=== PATIENT | male | born 1950 | race Caucasian/White ===

== ENCOUNTER 2019-04-13 12:54 | Inpatient (IN) | payer MEDICARE ==
[~2019-04-13] VITALS: Ht 177.8 cm; Wt 68.4 kg
--- NOTE | 2019-04-13 13:30 | NUR ---
PT BROUGHT IN BY EMS UNKEPT WITH SOILED CLOTHES. SOCKS AND SHOES BLACK AND SOCKS TUCK TO LOWER LEGS. PT TAKEN TO SHOWER ROOM AND CLEANSED. BLE RED AND SWOLLEN, SKIN INTACT. SACRAL AREA RED AND BLANCHABLE, SKIN INTACT. SCABS NOTED ABOVE LEFT BROW AND BRIDGE OF NOSE "I FELL A WHILE BACK" NO S/SX OF INFECTION NOTED.
[2019-04-13 14:03] LABS: UDS - AMPHET NEGATIVE QUAL (NEGATIVE); UDS - BARB NEGATIVE QUAL (NEGATIVE); UDS - BENZO NEGATIVE QUAL (NEGATIVE); UDS - COCAINE NEGATIVE QUAL (NEGATIVE); UDS - OPIATE NEGATIVE QUAL (NEGATIVE); UDS - PCP NEGATIVE QUAL (NEGATIVE); UDS - THC NEGATIVE QUAL (NEGATIVE)
[2019-04-13 14:04] LABS: APPEARANCE HAZY (CLEAR); BACTERIA FEW /hpf (NONE SEEN); BILIRUBIN NEGATIVE (NEGATIVE); COLOR YELLOW (YELLOW); EPITHELIAL CELLS 0-5 /hpf (0-5); GLUCOSE NEGATIVE (NEGATIVE); KETONE SMALL mg/dL (NEGATIVE); MUCUS <1+ /lpf (NONE SEEN); NITRITE NEGATIVE (NEGATIVE); PROTEIN TRACE mg/dL (NEGATIVE); RED CELLS - URINE 25-50 /hpf (0-5); SPECIFIC GRAVITY 1.015 (1.005-1.020); UROBILINOGEN NORMAL (NORMAL); WHITE CELLS - URINE OCC /hpf (0-5)
[2019-04-13 14:24] LABS: BASOPHILS 0.3 % (0-2); EOSINOPHILS 0.3 % (0-7); HEMATOCRIT 41.3 % (42.0-54.0); HEMOGLOBIN 14.9 g/dL (13.5-17.5); IMMATURE GRANULOCYTES 0.2 % (0-5); LYMPHOCYTES 12.5 % (15-50); MCH 36.9 pg (26.0-34.0); MCHC 36.1 g/dL (31.0-37.0); MCV 102.2 fL (80.0-100.0); MEAN PLATELET VOLUME 9.1 fL (7.4-10.4); MONOCYTES 5.2 % (2-11); NEUTROPHILS 81.5 % (40-80); PLATELET COUNT 276 10x3/uL (130-400); RBC 4.04 10x6/uL (4.20-6.10); RDW 13.7 % (11.5-14.5); WBC 10.1 10x3/uL (4.8-10.8)
[2019-04-13 14:25] LABS: ALBUMIN 2.8 g/dL (3.4-5.0); ALKALINE PHOSPHATASE 136 U/L (46-116); ALT (SGPT) 16 U/L (10-68); CALC OSMOLALITY 274 mosm/kg (275-300); CALCIUM 8.7 mg/dL (8.5-10.1); CARBON DIOXIDE 29.9 mmol/L (21.0-32.0); CHLORIDE - SERUM 99 mmol/L (98-107); CREATININE - SERUM 0.8 mg/dL (0.6-1.3); GLUCOSE 90 mg/dL (74-106); POTASSIUM - SERUM 3.6 mmol/L (3.5-5.1); PROTEIN - SERUM 7.3 g/dL (6.4-8.2); SODIUM 138 mmol/L (136-145); UREA NITROGEN 10 mg/dL (7-18); eGFR NON AFRICAN AMERICAN > 90 mL/min (90-120)
--- NOTE | 2019-04-13 14:35 | NUR ---
CLARI WITH [facility] AT AND REPORTS PT HAVING HALLUCINATIONS AT HOME "SEEING PBABIES UNDER THE TABLE, SLEEPING IN TRASH"
[2019-04-13 14:49] VITALS: BP 148/90
--- NOTE | 2019-04-13 16:04 | NUR ---
CALLED JULITA AT [facility] TO SEE IF THEY CAN ACCEPT PT. INFO FAXED TO [facility] AT THEIR REQUEST ([facility] FAX#[phone])
--- NOTE | 2019-04-13 16:30 | NUR ---
PT REQUESTING TO GO OUT TO SMOKE. OUT WITH MABEL MONTAGUE CM.
[2019-04-13 16:33] VITALS: BP 144/88
--- NOTE | 2019-04-13 16:40 | NUR ---
RTN TO ER#14. RESTING IN WC WITHOUT C/O. VSS
[2019-04-13 18:11] VITALS: BP 142/89
--- NOTE | 2019-04-13 18:11 | NUR ---
MEAL TRAY SERVED. APPETITE GOOD
--- NOTE | 2019-04-13 18:22 | NUR ---
CALLED [facility] TO REQUEST EVAL. SPOKE WITH GERBER, SHE WILL COME SOON SHE CAN
--- NOTE | 2019-04-13 18:35 | NUR ---
DENISSE MAYES FROM [facility] AT FOR MOMO
--- NOTE | 2019-04-13 19:02 | NUR ---
[facility] HOME ADVISED PT TO RECIEVE BANANA BAG BEFORE BEING TRANSPORTED.
--- NOTE | 2019-04-13 19:02 | NUR ---
BS REPORT TO DENISSE MARTÍNEZ
--- NOTE | 2019-04-13 19:45 | NUR ---
PT PROVIDED WITH ICE WATER AT THIS TIME. PT SITTING UP IN BED.
--- NOTE | 2019-04-13 20:20 | NUR ---
PT IV D/C AFTER BANANA BAG COMPLETE. PT TO BE TRANSFERRED TO [facility] WHEN THE UNIT IS READY TO ACCEPT.
--- NOTE | 2019-04-13 21:12 | NUR ---
PT TRANSFERRED TO [facility] AT THIS TIME.
[2019-04-13 22:38] LABS: APPEARANCE CLEAR (CLEAR); BACTERIA FEW /hpf (NONE SEEN); BILIRUBIN NEGATIVE (NEGATIVE); COLOR YELLOW (YELLOW); EPITHELIAL CELLS 0-5 /hpf (0-5); GLUCOSE NEGATIVE (NEGATIVE); KETONE NEGATIVE (NEGATIVE); NITRITE NEGATIVE (NEGATIVE); PROTEIN TRACE mg/dL (NEGATIVE); SPECIFIC GRAVITY 1.015 (1.005-1.020); UROBILINOGEN NORMAL (NORMAL); WHITE CELLS - URINE 0-5 /hpf (0-5)
--- NOTE | 2019-04-14 02:12 | NUR ---
PATIENT ARRIVED AT 21:00 FROM OUR E.D. VIA WHEELCHAIR, APS CASE (CLARI [phone], PATIENT WAS FOUND WANDERING FROM HIS HOME IN VERY POOR CONDITION, PATIENT WAS CLEANED UP IN THE E.D. BEFORE COMING TO INTERMEDIATE, CODE WORD 'APS' CODE STATUS IS FULL CODE. PATIENT SIGNED HIMSELF IN, CALM AND COOPERATIVE, WILL CONTINUE TO MONITOR.
[2019-04-14 03:24] VITALS: BP 135/89; BMI 22.8
[2019-04-14 06:39] LABS: BASOPHILS 0.2 % (0-2); EOSINOPHILS 0.9 % (0-7); HEMATOCRIT 37.4 % (42.0-54.0); HEMOGLOBIN 12.9 g/dL (13.5-17.5); IMMATURE GRANULOCYTES 0.2 % (0-5); LYMPHOCYTES 9.7 % (15-50); MCH 35.2 pg (26.0-34.0); MCHC 34.5 g/dL (31.0-37.0); MCV 102.2 fL (80.0-100.0); MEAN PLATELET VOLUME 9.2 fL (7.4-10.4); MONOCYTES 7.3 % (2-11); NEUTROPHILS 81.7 % (40-80); PLATELET COUNT 264 10x3/uL (130-400); RBC 3.66 10x6/uL (4.20-6.10); RDW 13.8 % (11.5-14.5); WBC 9.2 10x3/uL (4.8-10.8)
[2019-04-14 08:13] LABS: ALBUMIN 2.5 g/dL (3.4-5.0); ALKALINE PHOSPHATASE 111 U/L (46-116); ALT (SGPT) 14 U/L (10-68); BILIRUBIN - TOTAL 0.48 mg/dL (0.2-1.3); CALC OSMOLALITY 276 mosm/kg (275-300); CARBON DIOXIDE 29.9 mmol/L (21.0-32.0); CHLORIDE - SERUM 102 mmol/L (98-107); CHOL - HDL RATIO 2.2 ratio (2.3-4.9); CHOLESTEROL, TOTAL 131 mg/dL (0-200); CREATININE - SERUM 0.9 mg/dL (0.6-1.3); GLUCOSE 93 mg/dL (74-106); HDL CHOLESTEROL 59 mg/dL (32-96); LDL CHOLESTEROL 58 mg/dL (0-100); POTASSIUM - SERUM 3.6 mmol/L (3.5-5.1); PROTEIN - SERUM 6.2 g/dL (6.4-8.2); SODIUM 139 mmol/L (136-145); THYROID STIMULATING HORMONE 1.83 uIU/mL (0.36-3.74); TRIGLYCERIDE 74 mg/dL (30-200); UREA NITROGEN 10 mg/dL (7-18); eGFR NON AFRICAN AMERICAN 89 mL/min (90-120)
[2019-04-14 09:08] VITALS: BP 136/63
--- NOTE | 2019-04-14 12:37 | NUR ---
PT IS AWAKE, ALERT, AND COOPERATIVE. ASSESSMENT COMPLETE. NO BEHAVIORS NOTED AT THIS TIME. MED COMPLIANT. FALL PRECAUTIONS IN PLACE. REDIRECT AND REORIENT NEEDED. WILL CPOC.
[2019-04-14 19:42] VITALS: BP 134/75
--- NOTE | 2019-04-14 21:00 | NUR ---
PT IS COMBATIVE AND AGGITATED WITH STAFF AND PEERS. PRN 0.5 MG ATIVAN IM GIVEN. WILL CONTINUE TO MONITOR.
--- NOTE | 2019-04-14 21:49 | NUR ---
PT APPEARS LESS AGGITATED BUT IS REMOVING HIS SHIRT IN DAY ROOM. HE REFUSES TO PUT BACK ON UNTIL HE GOES TO HIS ROOM. WILL CONTINUE TO MONITOR.
--- NOTE | 2019-04-14 23:01 | NUR ---
B.) PT IS ALERT AND ORIENTED TO SELF ONLY. HE IS LABILE WITH ADL'S. HE CAN GET VERBALLY AGGRESSIVE. HE AMBULATES BY HISELF. I.) REDIRECT OFTEN. R.) REMAINS CONFUSED DESPITE MULTIPLE ATTEMPTS TO REDIRECT. P.) CONTINUE PLAN OF CARE
[2019-04-15 08:11] LABS: RAPID PLASMA REAGIN Non Reactive (Non Reactive)
[2019-04-15 08:32] VITALS: BP 144/67
--- NOTE | 2019-04-15 12:29 | NUR ---
NUTRITION F/U NEW PT WITH LOW NUTRITIONAL SCREEN ON ADMIT. REG DIET. WILL MONITOR PO INTAKE AND WT. RD FOLLOWING
--- NOTE | 2019-04-15 13:34 | PSY ---
PATIENT NAME:JULI KEATING MEDICAL RECORD: [id number] : 50 LOCATION:[facility] ADMISSION DATE: 04/13/19 ACCOUNT: [id number] PSYCHIATRIC EVALUATION DATE OF EVALUATION: 04/14/19 IDENTIFYING DATA: The patient is 69 years old and he is admitted to the hospital on a voluntary basis. CHIEF COMPLAINT: Confusion. HISTORY OF PRESENT ILLNESS: The patient presented to the Emergency Room yesterday. He apparently was brought there by [facility] for placement. The patient is quite impaired. Apparently, he has been living alone and not caring for himself. His physical condition has improved as he has been bathed and given clean clothing, but apparently he was extremely disheveled. He is extremely impaired cognitively and is giving me virtually no useful information, simply rambling and incoherent. He does report a history of drinking and smoking, but I would doubt he has done any recently. PAST MEDICAL HISTORY: Currently unknown. PAST PSYCHIATRIC HISTORY: Unknown. ALLERGIES: No known drug allergies. CURRENT MEDICATIONS: None. MENTAL STATUS EXAMINATION: The patient is awake, alert and oriented to person only. He is not able to cooperate with formal mental status testing, but his memory, concentration, and abstraction abilities can be inferred to be significantly and seriously impaired based on context. SOCIAL HISTORY: Unknown. Apparently, the patient has history of alcohol and cigarette use. Other than that, I have no collateral sources of information. 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 AXIS II: Deferred. AXIS III: None. AXIS IV: Moderate. AXIS V: Global assessment of functioning is 20. PLAN: At this time, the patient is severely impaired cognitively. He will be observed for alcohol withdrawal symptoms and treated supportively while additional sources of information are being sought. TRANSINT:[id number] Voice Confirmation ID: [id number] DOCUMENT ID: [id number] LANIE NAIR MD at 1334 CC: [id number] DICTATION DATE: 04/14/191705 SLOT ATTENDANT: 04/14/19 1736 ADM IN [address] [id number] [place] [address]
--- NOTE | 2019-04-15 16:29 | NUR ---
RECEIVED PT IN DINING ROOM FOR B'FAST, ALERT, CALM, CONFUSED, COOPERATIVE. MEDS ADMIN PER ORDERS WITH COMPLETE MED COMPLIANCE NOTED. COOPERATIVE WITH STAFF AND PLAN OF CARE. CONT POC DIRECTED.
[2019-04-15 20:20] VITALS: BP 149/87
--- NOTE | 2019-04-16 03:39 | NUR ---
B.) PT IS ALERT AND ORIENTED TO SELF ONLY. HE RAMBLES TO HIMSELF OFTEN BUT IS CALM AND COOPERATIVE. HE IS ABLE TO MAKE NEEDS KNOWN. SELF AMBULATES WITHOUT ASSISTANCE. I.) PROVIDED PM MEDICATIONS. REDIRECT OFTEN. R.) COMPLIANT WITH ALL MEDICATIONS. VERBALIZES UNDERSTANDING OF REDIRECTS BUT IS EASILY CONFUSED AGAIN. P.) CONTINUE PLAN OF CARE
[2019-04-16 09:36] VITALS: BP 109/82
--- NOTE | 2019-04-16 15:43 | NUR ---
B) The patient is awake and alert, he is calm and he is pleasant and he is cooperative with staff. He has not shown any hallucinations today and he has not been exit seeking. I) Provide prescribed meds. R) The patient is compliant with meds and unit milieu. P) Continue POC.
--- NOTE | 2019-04-16 20:53 | NUR ---
PATIENT IS CONFUSED, ISOLATIVE, CAN PERFORM OWN ADL'S, COMPLIANT WITH MEDS. WILL FOLLOW POC
[2019-04-16 21:26] VITALS: BP 93/51
--- NOTE | 2019-04-17 08:01 | NUR ---
B) The patient is calm this am, he has poor insight into his situation. He has not shown any signs of hallucinations. He does have delusions as he says he needs to catch a ride and leave. He is oriented to self. He likes to joke and talk with staff and peers. He is forgetful and asks the same question over and over, but he is good at covering. I) Provide prescribed meds. R) The patient is compliant with meds and unit milieu this am. Will monitor his behavior. P) Continue POC.
--- NOTE | 2019-04-17 15:43 | NUR ---
PATIENT WAS GETTING OUT OF CHAIR WALKED A FEW STEPS AND FELL BACKWARDS. STAFF ASSISTED TO STANDING POSITION 3X. NO INJURIES NOTED. PT DENIES PAIN AT THIS TIME. VITAL SIGNS TAKEN. NEURO CHECKS STARTED. Martha VALERO APN NOTIFIED AT 1518. CALLED PLASTER MAKER TO REPORT FALL AND NO ANSWER. WILL CONTACT AGAIN. WILL CONT NEURO CHECKS. NO FAMILY TO CONTACT.
[2019-04-17 19:05] VITALS: BP 109/77
[2019-04-17 20:36] VITALS: BP 130/80
--- NOTE | 2019-04-17 22:15 | NUR ---
PATIENT IS CONFUSED, HAS TO BE REDIRECTED AT TIMES, INCONTINENT, COMPLIANT WITH MEDS. WILL FOLLOW POC
[2019-04-18 08:00] VITALS: BP 124/80
--- NOTE | 2019-04-18 16:40 | NUR ---
PT IS AWAKE AND ALERT TO PERSON ONLY. CALM AND COOPERATIVE WITH ASSESSMENT. MED COMPLIANT. REDIRECT AND REORIENT NEEDED. FALL PRECAUTIONS IN PLACE. WILL CPOC.
--- NOTE | 2019-04-18 20:15 | NUR ---
RECEIVED IN DAYROOM. SITTING IN A CHAIR WITH PEERS AT HIS SIDE. CALM AND COOPERATIVE WITH CARE AND ASSESSMENT. NO SIGNS OF HALLUCINATIONS AT THIS TIME. REDIRECT AND REORIENT NEEDED. CONTINUES TO SIT QUIETLY IN DAYROOM. CONTINUE PLAN OF CARE
[2019-04-18 22:48] VITALS: BP 107/69
[2019-04-19 08:00] VITALS: BP 117/69
--- NOTE | 2019-04-19 09:30 | NUR ---
PT IS AWAKE AND ALERT TO PERSON. CALM AND COOPERATIVE WITH ASSESSMENT. MED COMPLIANT. REDIRECT AND REORIENT NEEDED. NO BEHAVIORS NOTED. FALL PRECAUTIONS IN PLACE. WILL CPOC.
[2019-04-19 17:09] VITALS: Ht 177.8 cm; Wt 68.4 kg
[2019-04-19 20:23] VITALS: BP 96/70
--- NOTE | 2019-04-19 22:02 | NUR ---
RECEIVED IN DAYROOM. SITTING IN A CHAIR WITH PEERS AT HIS SIDE. CALM AND COOPERATIVE WITH CARE AND ASSESSMENT. NO SIGNS OF HALUCINATIONS. REDIRECT AND REORIENT NEEDED. CONTINUES TO SIT CALMLY IN CHAIR. CONTINUE PLAN OF CARE
[2019-04-20 08:00] VITALS: BP 99/73
--- NOTE | 2019-04-20 10:00 | NUR ---
AWAKE AND ALERT TO PERSON ONLY. MEDICATION COMPLIANT. CALM AND COOPERATIVE WITH CARE AND ASSESSMENT. REDIRECT AND REORIENT NEEDED. FALL PRECAUTIONS IN PLACE. WILL CPOC.
[2019-04-20 20:10] VITALS: BP 109/74
--- NOTE | 2019-04-20 20:43 | NUR ---
RECEIVED IN DAYROOM. SITTING IN A CHAIR WITH PEERS BY HIS SIDE SOCIALIZING. CALM AND COOPERATIVE WITH CARE AND ASSESSMENT. NO SIGNS OF HALLUCINATIONS. REDIRECT AND REORIENT NEEDED. CONTINUES TO SIT CALMLY IN DAYROOM SOCIALIZING. CONTINUE PLAN OF CARE
--- NOTE | 2019-04-21 13:04 | NUR ---
PATIENI IS AWAKE AND ALERT TO SELF ONLY. CALM AND COOPERATIVE WITH ASSESSMENTS. NO BEHVIORS NOTED. FALL PRECAUTIONS IN PLACE. WILL CPOC.
[2019-04-21 20:55] VITALS: BP 105/73
--- NOTE | 2019-04-22 01:05 | NUR ---
REC'D SITTING IN THE DAYROOM. CONFUSED AND WALKS ABOUT UNIT. WITHDRAWN AMD STAYS TO SELF. PROCCUPIED WITH WANTING TEA. ASKED NURSE MULTIPLE TIMES IF THERE WAS ANY FRESH TEA. ORIENTED TO SELF. ADMINISTER MEDS PER ORDERS Q SHIFT AND MONITOR COMPLIANCE. REORIENT NEEDED. MED COMPLIANT. COOPERATIVE WITH UNIT MILEU. POOR REORIENTATION RELATED TO PATIENT'S FORGETFULNESS. CONTINUE POC AND PROVIDE SAFE ENVIRONMENT.
[2019-04-22 09:26] VITALS: BP 101/71
--- NOTE | 2019-04-22 10:03 | NUR ---
B) The patient is pleasant and he is confused, he has poor insight into his situation. He sits with another male patient and they sit and talk and socialize, but he does not seek staff or other peers. I) Provide prescribed meds. R) The patient is compliant with meds. He ambulates indepedently. He has not had any hallucinations today. P) Continue POC.
--- NOTE | 2019-04-22 12:25 | NUR ---
NUTRITION F/U CHART REVIEWED, PT TOLERATING AHA DIET WITH 100% INTAKE RECENT MEALS. WT FAIRLY STABLE. WILL CONTINUE TO MONITOR PO INTAKE AND WT. RD FOLLOWING
[2019-04-22 20:01] VITALS: BP 119/64
--- NOTE | 2019-04-22 22:59 | NUR ---
REC'D PATIENT SITTING IN A WHEELCHAIR RECEIVING AN UPDRAFT TX. CONFUSED AND DISORIENTED. AMBULATES HOWEVER IS UNSTEADY. INTERACTS WITH A FEMALE PEER AND REQUIRES REDIRECTION IF OBSERVED TOUCHING ONE ANOTHER. NO INSIGHT INTO THE REASON FOR ADMISSION. ADMINISTER MEDS PER ORDERS Q SHIFT AND MONITOR COMPLIANCE. MED COMPLIANT. COOPERATIVE WITH REDIRECTION HOWEVER REQUIRES CLOSE SUPERVISION BECAUSE WILL GO TO ANOTHER ROOM. CONTINUE POC AND MONITOR COMPLIANCE.
--- NOTE | 2019-04-23 07:48 | NUR ---
B) The patient is awake and alert this am, he asks for coffee as soon as his eyes pop open and Nathan Carvajal [facility] got him a cup. He is oriented to his name. He is pleasnt, he has not shown any signs of hallucinations this am. I) Provide prescribed meds. Request that the patient initiate his med list. R) The patient takes his meds as prescribed. P) Continue POC.
[2019-04-23 08:30] VITALS: BP 104/66
[2019-04-23 20:00] VITALS: BP 111/69
--- NOTE | 2019-04-24 00:20 | NUR ---
B.) PT IS ALERT AND ORIENTED TO SELF AND SITUATION. HE IS AMBULATORY AND PLEASANT WITH STAFF. HIS AFFECT HAS IMPROVED. HE IS SUPPLIED WITH A SCHEDULE OF HIS MEDICATIONS TO SEE IF HE IS ABLE TO MANAGE HIS MEDICATIONS AT HOME WITHOUT ASSISTANCE. I.) PROVIDED PM MEDICATIONS. REDIRECT OFTEN. R.) COMPLIANT WITH ALL MEDICATIONS BUT UNABLE TO KEEP UP WITH HIS SCHEDULE OF MEDICATIONS AND IS UNSURE OF WHEN HIS NEXT DOSE IS. PT VERBALIZES UNDERSTANDING OF REDIRECT. P.) CONTINUE PLAN OF CARE
--- NOTE | 2019-04-24 07:38 | NUR ---
B) The patient is awake and alert, he is sitting in the hallway drinking coffeee and socializing with staff and peers. He has not shown any aggression, He is not exit seeking. He has not had any hallucinations. I) Provide prescribed meds. R) The patient is compliant with meds. Will provide a medication list and will request that he let the nurse know when he is to take his medications. He has lost the list, but will provide another one at this time. P) Continue POC.
[2019-04-24 08:00] VITALS: BP 116/55
--- NOTE | 2019-04-24 10:25 | NUR ---
The patient c/o a toothache and he rates it 10/10, Tylenol 650 mg po given now.
[2019-04-24 21:05] VITALS: BP 107/73
--- NOTE | 2019-04-24 22:22 | NUR ---
B.) PT IS ALERT AND ORIENTED TO SELF AND SITUATION. HE IS ABLE TO AMBULATE WITHOUT ASSISTANCE. HE WAS GIVEN A SCHEDULED LIST OF MEDICATIONS TO BE ABLE TO DETERMINE IF HE WAS ABLE TO MANAGE HIS OWN MEDICATIONS. I.) UNABLE TO PROMPT STAFF FOR SCHEDULED MEDICATIONS. PROVIDED PM MEDICATIONS. R.) COMPLIANT WITH ALL MEDICATIONS. P.) CONTINUE PLAN OF CARE
[2019-04-25 08:00] VITALS: BP 115/76
--- NOTE | 2019-04-25 15:01 | NUR ---
B) PATIENT IS ALERT TO SELF AND SITUATION. CALM AND COOPERATIVE WITH CARE AND ASSESSMENT. AMBULATES INDEPENDENTLY. I) ADMINISTER MEDICATIONS ORDERED. REDIRECT AND REORIENT FREQUENTLY. HE OFTEN HAS TO ASK WHERE THE BAYHROOM IS LOCATED. R) COMPLIANT WITH MEDICATIONS. P) CONTINUE PLAN OF CARE.
--- NOTE | 2019-04-25 19:35 | NUR ---
RECEIVED IN DAYROOM. SITTING IN A CHAIR SOCIALIZING WITH PEERS AT TIMES. CALM AND COOPERATIVE WITH CARE AND ASSESSMENT. NO SIGNS OF HALLUCINATIONS. REDIRECT AND REORIENT NEEDED. CONTINUES TO SIT CALMLY AT THIS TIME. CONTINUE PLAN OF CARE
[2019-04-25 22:56] VITALS: BP 105/71
[2019-04-26 08:00] VITALS: BP 137/71
--- NOTE | 2019-04-26 09:00 | NUR ---
B) PATIENT IS AWAKE AND ALERT TO SELF AND SITUATION, BUT IS VERY CONFUSED. HE IS SELF-AMBULATORY. CALM AND COOPERATIVE WITH CARE AND ASSESSMENT. SOCIALIZES WITH PEERS. I) ADMINISTER PRESCRIBED MEDICATIONS, REDIRECT AND REORIENT OFTEN. R) COMPLIANT WITH MEDICATIONS AND REDIRECTION. P) CONTINUE PLAN OF CARE.
--- NOTE | 2019-04-26 12:27 | PN ---
PATIENT:JULI ROCHA MEDICAL RECORD: [id number] LOCATION:[facility] ADMISSION DATE: 04/13/19 PROGRESS NOTE DATE OF SERVICE: 04/16/2019 SUBJECTIVE: Mr. Rocha is a 69-year-old male who has been wandering from home, hallucinating, not taking care of himself and exit seeking. He apparently was brought in by request of his son and when he came to the Emergency Room, he was disheveled to the point that his clothes were starting to stick to his skin extremely malodorous. On interview, the patient thought it was either 1998 or 1908 He did not know who the president was. He was walking, but somewhat unsteady and hesitating gait. He minimized any reason for being here. He did state that his last drink was 2 or 3 weeks ago and he was equivocal about ever having seizures. States that he passes out sometimes, but did not definitively answer yes or no on seizures. His latest vital signs are 91/80, 109/82 and 99% with clonazepam 1 mg b.i.d. He is eating 100% at all meals. Last bowel movement on the and slept 9-1/2 hours last night. ASSESSMENT: Unchanged. PLAN: The patient's memory is certainly impaired. We will continue to watch for his ability to care for self, but probable placement will be needed. Case discussed with nursing, chart reviewed. The patient reviewed. TRANSINT:[id number] Voice Confirmation ID: [id number] DOCUMENT ID: [id number] SHARON BARRY MD at 1227 CC: [id number] DICTATION DATE: 04/16/19 1345 DRAG SAWYER: 04/17/19 0021 ADM IN [id number] [place] [address]
--- NOTE | 2019-04-26 12:27 | PN ---
PATIENT:JULI ROCHA MEDICAL RECORD: [id number] LOCATION:[facility] Thomas112 ADMISSION DATE: 04/13/19 PROGRESS NOTE DATE OF SERVICE: 04/17/2019 SUBJECTIVE: Mr. Rocha is a 69-year-old male who was brought from home, I believe APS redirection. He was simply filthy, malodorous, low albumin, clearly not taking care of himself. On interview today, he thought the year was 1926. He did not know where we were. He did not know, in contrast to yesterday, who the president was. He continued to have no bilateral upper extremity tremor. He slept 9.25 hours last night, eating 100% of all meals and last bowel movement on the . He states he, for the most part, is doing well. He has limited insight into his ability to care for self; however. ASSESSMENT: Unchanged. PLAN: Continue. We will start to taper clonazepam secondary to the patient's longstanding alcohol use, his lack of tremor and his statements that he had not drank several weeks before admission and stable vital signs. 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 Literature is equivocal on whether Aricept might be as useful as would be the case on a straight Alzheimer's dementia patient. Case discussed with nursing. Chart reviewed and the patient interviewed. TRANSINT:[id number] Voice Confirmation ID: [id number] DOCUMENT ID: [id number] SHARON BARRY MD at 1227 CC: [id number] DICTATION DATE: 04/17/19 1317 HAND II BLOCKER: 04/17/19 1418 ADM IN [place] [id number] [place] [id number]
--- NOTE | 2019-04-26 12:28 | PN ---
PATIENT:JULI ROCHA MEDICAL RECORD: [id number] LOCATION:[facility] ThomasJohn ADMISSION DATE: 04/13/19 PROGRESS NOTE DATE OF SERVICE: 04/19/2019 SUBJECTIVE: Mr. Rocha is a 69-year-old male who was found wandering from home, hallucinating, not taking care of himself. He simply was extremely filthy and malodorous and at times here exit-seeking. He was napping, but when awoken pleasant, cooperative, confused. Stated that his ambulation is poor. He slept 7.75 hours. Nursing reports he is fairly calm, cooperative, although he definitely does not want to be here, "I don't belong here." PLAN: We will work with APS. The patient is clearly not able to care for self. Case discussed nursing, chart reviewed. The patient interviewed. TRANSINT:[id number] Voice Confirmation ID: [id number] DOCUMENT ID: [id number] SHARON BARRY MD at 1228 CC: [id number] DICTATION DATE: 04/19/19 1500 HOSPITAL RECEPTIONIST: 04/20/19 0039 ADM IN [facility] [address] [id number]
--- NOTE | 2019-04-26 12:28 | PN ---
PATIENT:JULI KEATING MEDICAL RECORD: [id number] LOCATION:[facility] Frazier ADMISSION DATE: 04/13/19 PROGRESS NOTE DATE OF SERVICE: 04/21/2019 SUBJECTIVE: This 69-year-old male who was found wandering from home, hallucinating. He has a long history of alcohol abuse, although he denied any use in the 2-3 weeks prior to admission. He was not taking care of himself. He was malodorous. His clothes were sticking to his body. He continues confused. He is alert and oriented times 1-2. He slept 7.75 hours, eating 100% of all meals and last bowel movement on the . We have him on medication compliance program and he is not able to initiate his own medication or asking the nurses for his medication. ASSESSMENT: Unchanged. PLAN: We are waiting APS, and disposition, and discharge instructions [facility] APs, working with APS. Case discussed with nursing, chart reviewed, and the patient interviewed. TRANSINT:[id number] Voice Confirmation ID: [id number] DOCUMENT ID: [id number] SHARON BARRY MD at 1228 CC: [id number] DICTATION DATE: 04/21/19 1045 TUBE BENDER HAND: 04/21/19 193 ADM IN [facility] [address] [place] [address]
--- NOTE | 2019-04-26 12:28 | PN ---
PATIENT:JULI ROCHA MEDICAL RECORD: [id number] LOCATION:TAR[facility] ThomasJohn ADMISSION DATE: 04/13/19 PROGRESS NOTE DATE OF SERVICE: 04/23/2019 SUBJECTIVE: Mr. Rocha is a 69-year-old male who came in wandering from his home, hallucinating, not taking care of himself, extremely malodorous and clothes sticking to him. He is calm, pleasant on interview. He is still alert and oriented times 1-2 only, but although his color, his mentation and gait do seem to be improving with the admission. He slept 8.5 hours, eating 100% of all meals and last bowel movement on the 24. OBJECTIVE: VITAL SIGNS: 98.6, 76, 17, 104/66 and 98%. ASSESSMENT: Unchanged. PLAN: Continue current treatment plan. Await APS involvement to move forward with disposition as the patient is unable to care for himself at this time. TRANSINT:[id number] Voice Confirmation ID: [id number] DOCUMENT ID: [id number] SHARON BARRY MD at 1228 CC: [id number] DICTATION DATE: 04/23/19 1319 JACK FRAME TENDER: 04/23/19 1438 ADM IN [id number] [place] [address]
--- NOTE | 2019-04-26 12:28 | PN ---
PATIENT:JULI ROCHA MEDICAL RECORD: [id number] LOCATION:TARUN Thomas112 ADMISSION DATE: 04/13/19 PROGRESS NOTE DATE OF SERVICE: 04/20/2019 SUBJECTIVE: Mr. Rocha is a 69-year-old male who had wandered from home. He was extremely unkempt, malodorous to the point that his son felt like he was no longer able to take care of himself. The patient is pleasant, cooperative, and confused. He himself reports some difficulties with ambulation. On exam today, the patient thought it was 1939. He knew the president was Serge Rand. He did not know what town he was in nor why he was here. He required some prompting with ADLs. On medication compliance program where the patient is given a list of medicines and asked to tell the nurses when it is time to better assess whether they can self-initiate medication. The patient has not been able to do this at all. He slept 8 hours, eating 100%. Last bowel movement 04/19/2019. OBJECTIVE: VITAL SIGNS: His latest vital signs are 98.2, 68, 18, 99/73, and 97%. ASSESSMENT: Unchanged. PLAN: We will move his clonazepam down from 0.5 mg t.i.d. to b.i.d. in a gradual taper to decrease fall risk and risk of furthering dementia. Case discussed with nursing, chart reviewed, and the patient interviewed. TRANSINT:[id number] Voice Confirmation ID: [id number] DOCUMENT ID: [id number] SHARON BARRY MD at 1228 CC: [id number] DICTATION DATE: 04/20/19 1508 RADIO HOST: 04/20/19 2357 ADM IN [place] [id number] [place] [address]
--- NOTE | 2019-04-26 12:28 | PN ---
PATIENT:JULI ROCHA MEDICAL RECORD: [id number] LOCATION:TARUN ThomasJohn ADMISSION DATE: 04/13/19 PROGRESS NOTE DATE OF SERVICE: 04/22/2019 SUBJECTIVE: Mr. Rocha is a 69-year-old male who was admitted because he was wandering from home hallucinating. He was malodorous. He had not showered in so long, his clothes were actually sticking to him. He has little to no insight about this. He does not know the year. He does not really understand why he is here. He is calm, pleasant; however. He is sleeping 8.5 hours and eating 100%. Last bowel movement was on the . His latest vitals are 97.5, 76, 20, 101/71, and 98%. ASSESSMENT: Unchanged. PLAN: We are awaiting APS involvement to help with disposition as the patient lacks the insight to determine his own disposition plans and is a danger to self and unable to care for self if left to his own devices. Case discussed with nursing, chart reviewed, and the patient interviewed. TRANSINT:[id number] Voice Confirmation ID: [id number] DOCUMENT ID: [id number] SHARON BARRY MD at 1228 CC: [id number] DICTATION DATE: 04/22/19 1608 ORDNANCE ENGINEER: 04/23/19 0048 ADM IN [id number] [place] [address]
[2019-04-26 20:22] VITALS: BP 122/70
--- NOTE | 2019-04-26 20:42 | NUR ---
RECEIVED IN DAYROOM. RESTING IN CHAIR WITH PEERS BY HIS SIDE. SOCIALIZING AT TIMES. CONFUSED. CALM AND COOPERATIVE WITH CARE AND ASSESSMENT. NO SIGNS OF HALLUCINATIONS. RESTING IN BED WITH EYES CLOSED AT THIS TIME. CONTINUE PLAN OF CARE
[2019-04-27 08:00] VITALS: BP 113/75
--- NOTE | 2019-04-27 10:05 | NUR ---
B) PATIENT IS AWAKE AND ALERT TO SELF ONLY, WITH SOME CONCFUSION NOTED. CALM AND COOOPERATIVE WITH CARE AND ASSESSMENT. SOCIALIZES WITH PEERS. I) ADMINISTER PRESCRIBED MEDICATIONS. REDIRECT AND REORIENT OFTEN. R) COMPLIANT WITH MEDICATIONS. REDIRECTS EASILY. P)CONTINUE PLAN OF CARE.
--- NOTE | 2019-04-27 10:18 | HP ---
PATIENT: JULI ROCHA MEDICAL RECORD: [id number] ACCOUNT: [id number] LOCATION:RizwanJINA Frazier8 : 50 ADMISSION DATE: 04/13/19 PCP: No PCP HISTORY AND PHYSICAL EXAMINATION HISTORY OF PRESENT ILLNESS: Mr. Rocha is a 69-year-old male who was admitted because of wandering from home, hallucinating, not taking care of himself at all. He continues to be confused, but he is pleasant. He is not able to self-initiate on medications at all. He can do his own ADLs if the activities are structured for him and he is told what to do. He slept 7.75 hours. Last bowel movement on . Eating 100%, 100%, and 25%. ASSESSMENT: Unchanged. PLAN: We will continue current treatment plan, awaiting APS involvement, and residential approval. The patient will make excellent residential candidate as he is generally calm, cooperative, but extremely confused. TRANSINT:[id number] Voice Confirmation ID: [id number] DOCUMENT ID: [id number] SHARON BARRY MD at 1018 CC: [id number] DICTATION DATE: 04/26/19 1249 RAW MATERIAL PLANNER: 04/26/19 1312 ADM IN [place] [address] [place] [address]
--- NOTE | 2019-04-27 10:18 | PN ---
PATIENT:JULI ROCHA MEDICAL RECORD: [id number] LOCATION:TARUN ThomasJohn ADMISSION DATE: 04/13/19 PROGRESS NOTE DATE OF SERVICE: 04/26/2019 SUBJECTIVE: Mr. Rocha is a 69-year-old male, who was admitted from his home after having wandered from his home hallucinating, not take care of himself, very poorly kempt. His clothes were basically sticking to him. We are awaiting Jyoti and placement. The patient is calm and pleasant. His memory is poor. Although, I have met with him multiple days now, he cannot remember my name, he cannot really remember what I do. He cannot remember to initiate meds, although medication list has been given to him. He slept 8-1/2 hours, eating 100%, 70%, and 100%. Last bowel movement on the . ASSESSMENT: Unchanged. PLAN: Continue current meds. Case discussed with nursing. Chart reviewed and the patient interviewed. Await placement decisions by local facility. TRANSINT:[id number] Voice Confirmation ID: [id number] DOCUMENT ID: [id number] SHARON BARRY MD at 1018 CC: [id number] DICTATION DATE: 04/26/19 1145 RECRUITMENT INTERN: 04/26/19 1350 [place] [address]
--- NOTE | 2019-04-27 19:57 | NUR ---
RECEIVED IN BEDROOM. RESTING IN BED WITH EYES OPEN. CALM AND COOPERATIVE WITH CARE AND ASSESSMENT. NO SIGNS OF HALLUCINATIONS. CONFUSED. REDIRECT AND REORIENT NEEDED. RESTING IN BED WITH EYES CLOSED AT THIS TIME. CONTINUE PLAN OF CARE
[2019-04-28 04:19] VITALS: BP 110/54
[2019-04-28 08:25] VITALS: BP 103/73
--- NOTE | 2019-04-28 15:47 | PN ---
PATIENT:JULI KEATING MEDICAL RECORD: [id number] LOCATION:TARUN Thomas112 ADMISSION DATE: 04/13/19 PROGRESS NOTE DATE OF SERVICE: 04/15/2019 SUBJECTIVE: The patient's case was discussed with staff. He has no new complaint. OBJECTIVE: The patient is very disorganized and only oriented to person. He does have a history of alcoholism, although I do not know how long it has been since he stopped drinking. ASSESSMENT: Alcohol-related dementia. PLAN: The patient will be maintained on current medicines. I am going to start him on a scheduled dose of Klonopin to assist with his anxiety. It is clear that he is going to require 79-hcum-e-day supervision. What is unclear is which setting would be the least restrictive that can meet those needs. TRANSINT:[id number] Voice Confirmation ID: [id number] DOCUMENT ID: [id number] LANIE NAIR MD at 1547 CC: [id number] DICTATION DATE: 04/15/19 1501 DIRECTOR OF CULTURE: 04/15/192004 ADM IN [facility] [address] [place] [address]
--- NOTE | 2019-04-28 18:01 | NUR ---
B) PATIENT IS AWAKE AND ALERT TO SELF ONLY. CALM AND COOPERATIVE WITH CARE AND ASSESSMENT. SOCIALIZES WITH PEERS. SOME CONFUSION NOTED. I) ADMINISTER PRESCRIBED MEDICATIONS. NO AGGRESSION NOTED. R) COMPLIANT WITH MEDICATIONS. REDIRECT AND REORIENT NEEDED. P) CONTINUE PLAN OF CARE.
[2019-04-28 20:19] VITALS: BP 132/85
--- NOTE | 2019-04-28 22:16 | NUR ---
B.) PT IS ALERT AND ORIENTED TO SELF, PLACE AND SITUATION. HE IS ABLE TO AMBULATE ON HIS OWN AND MAKE HIS NEEDS KNOWN. HE IS PLEASANT AND COOPERATIVE WITH STAFF AND PEERS. I.) PROVIDED PM MEDICATION. REDIRECT OFTEN. R.) COMPLIANT WITH ALL MEDICATIONS. EASY TO REDIRECT. P.) CONTINUE PLAN OF CARE
[2019-04-29 08:49] VITALS: BP 120/72
--- NOTE | 2019-04-29 11:43 | NUR ---
PATIENT SITTING AND SOCIALIZING WITH OTHER PEERS AND STAFF. NO ACUTE DISTRESS NOTED. RESP EVEN AND NONLABORED. PT AMBULATES AND IS ABLE TO MAKE NEEDS KNOWN. PT COMPLIANT WITH MEDS, VITALS AND ASSESSMENT. PT CAN BE CONFUSED AT TIMES AND ORIENTED TO PERSON, AND TIME. WILL CONT TO PLAN OF CARE.
--- NOTE | 2019-04-29 13:17 | NUR ---
Team Treatment Review: Diet: Regular Mechanical Soft PO Intake: 84% avg x 9 meals Wt: (no sig change) 04/18/2019: 148 lbs 04/25/2019: 148.2 lbs BM: x 1 on 04/28 Med: Vit B12, Folate Labs: No new labs since 04/14 PO intake good. Continue current diet as tolerated. Clinical Dietitian Following
--- NOTE | 2019-04-29 14:53 | PN ---
PATIENT:JULI KEATING MEDICAL RECORD: [id number] LOCATION:TARUN AstorgaMagdaJohn ADMISSION DATE: 04/13/19 PROGRESS NOTE DATE OF SERVICE: 04/28/2019 SUBJECTIVE: The patient's case was discussed with staff. He has no new complaint. OBJECTIVE: The patient is in good behavioral control with limited insight about his condition. He does tolerate his medicines well. ASSESSMENT: No change in diagnoses. PLAN: Brief supportive and educational interventions were made. Long-term prognosis is guarded. TRANSINT:[id number] Voice Confirmation ID: [id number] DOCUMENT ID: [id number] LANIE NAIR MD at 1453 CC: [id number] DICTATION DATE: 04/28/19 1623 ALUMINUM BOAT INSPECTOR: 04/29/19 0021 ADM IN [place] [place] [address]
[2019-04-29 20:53] VITALS: BP 113/76
--- NOTE | 2019-04-30 03:53 | NUR ---
B) Patient is alert and oriented to person and place, keeps to himself at times, preferrs quiet enviroment I) Administered scheduled medications as ordered, monitored for safety R) Medication compliant, pleasant and social P) Continue plan of care.
--- NOTE | 2019-04-30 14:28 | PN ---
PATIENT:JULI KEATING MEDICAL RECORD: [id number] LOCATION:TARUN Frazier ADMISSION DATE: 04/13/19 PROGRESS NOTE DATE OF SERVICE: 04/29/2019 SUBJECTIVE: The patient's case was discussed with staff. He has no new complaint. OBJECTIVE: The patient denies intent to harm himself or others. He generally tolerates his medicines well. ASSESSMENT: Alcohol-related dementia. PLAN: Current medicines have been reviewed. He is clearly in need of 86-dskc-y-day supervision. TRANSINT:[id number] Voice Confirmation ID: [id number] DOCUMENT ID: [id number] LANIE NAIR MD at 1428 CC: [id number] DICTATION DATE: 04/29/19 1500 RIVETING MACHINE OPERATOR: 04/30/19 0015 ADM IN [facility] [address] [place] [address]
[2019-04-30 14:55] VITALS: BP 113/76
[2019-04-30 20:05] VITALS: BP 123/88
--- NOTE | 2019-05-01 01:33 | NUR ---
REC'D SITTING IN THE DAYROOM HOLDING ANOTHER PATIENTS HAND. EXPLAINED TO BOTH PATIENTS THAT PHYSICAL CONTACT IS NOT ALLOWED. ORIENTED TO SELF AND WHEN ASKED IF HE KNEW WHERE HE IS PATIENT RELATED "SOMETHING NATIONAL." DISORIENTED TO TIME AND SITUATION. PLEASANT AND INTERACTS APPROPRIATELY WHEN APPROACHED. DELUSIONAL REALTING "I WAS WALKING DOWN THE ROAD AND FELL AND HIT MY HEAD AND HAVEN'T BEEN THE SAME SENSE. I'VE GOT DEMENTIA AND IT'S BACK." ADMINISTER MEDS Q SHIFT AND MONITOR COMPLIANCE. REORIENT NEEDED. MED COMPLIANT. PATIENT IS FORGETFUL AND DOES NOT RETAIN INFORMATION. COOPERATIVE WITH STAFF REQUEST. CONTINUE POC AND PROVIDE SAFE ENVIRONMENT.
[2019-05-01 08:56] VITALS: BP 96/65
[2019-05-01 11:23] VITALS: BP 96/65
--- NOTE | 2019-05-01 12:17 | PN ---
PATIENT:JULI KEATING MEDICAL RECORD: [id number] LOCATION:TARUN Frazier ADMISSION DATE: 04/13/19 PROGRESS NOTE DATE OF SERVICE: 04/30/2019 SUBJECTIVE: The patient's case was discussed with staff. He has no new complaint. OBJECTIVE: The patient is in good behavioral control with limited insight about his condition. He does tolerate his medicines well. ASSESSMENT: Dementia. PLAN: The patient is in need of 79-yppe-v-day supervision. I have spoken with him about changing his living situation and he is adamant that he wants to go home and live alone by himself. I have not explained to him that adult protective services is involved with the case. I know that has been explained before and he is apparently just forgotten it. At this point, hopefully, there will be some less restrictive environment that can meet his needs. He tells me he has 2 brothers, Scotty and Greyson and that he might be able to live with them, but he does not want to live with them. I will discuss this with the treatment team on Friday. TRANSINT:[id number] Voice Confirmation ID: [id number] DOCUMENT ID: [id number] LANIE NAIR MD at 1217 CC: [id number] DICTATION DATE: 04/30/19 1450 SENIOR SQL SERVER DATABASE DEVELOPER: 04/30/19 1554 ADM IN [place] [address] [place] [address]
--- NOTE | 2019-05-01 14:46 | NUR ---
PT IS AWAKE AND ALERT TO PERSON ONLY. PT IS VERY CONFUSED. HAS VERY LITTLE OR NO INSIGHT INTO HIS SITUATION. CALM AND COOPERATIVE WITH ASSESSMENT. MED COMPLIANT. NO BEHAVIORS NOTED AT THIS TIME. REDIRECT AND REORIENT NEEDED. FALL PRECAUTIONS IN PLACE. WILL CPOC.
[2019-05-01 20:59] VITALS: BP 122/70
--- NOTE | 2019-05-01 22:14 | NUR ---
SITTING IN DAYROOM. PLEASANT AND SOCIALIZES. INITIATES CONVERSATION WITH STAFF. CONFUSED AND DIORIENTED. DOES NOT STAY ON TOPIC OF CONVERSATION. CAN FOLLOW VERBAL INSTRUCTION. ADMINISTER MEDS Q SHIFT AND MONITOR COMPLIANCE. REORIENT NEEDED. MED COMPLIANT. POOR REORIENTATION DUE TO IMPAIRED ABILITY TO RETAIN INFORMATION. CONTINUE POC AND PROVIDE SAFE ENVIRONMENT.
[2019-05-02 08:41] VITALS: BP 103/68
--- NOTE | 2019-05-02 10:51 | PN ---
PATIENT:JULI KEATING MEDICAL RECORD: [id number] LOCATION:TARUN Frazier ADMISSION DATE: 04/13/19 PROGRESS NOTE DATE OF SERVICE: 05/01/2019 SUBJECTIVE: The patient's case was discussed with staff. He has no new complaint. OBJECTIVE: The patient denies intent to harm himself or others. He generally tolerates his medicines well. Eye contact is fair. ASSESSMENT: Dementia. PLAN: Current medicines have been reviewed and will be maintained. Long-term prognosis is guarded. TRANSINT:[id number] Voice Confirmation ID: [id number] DOCUMENT ID: [id number] LANIE NAIR MD at 1051 CC: [id number] DICTATION DATE: 05/01/19 1227 RECRUITING AND SELECTION CONSULTANT: 05/01/19 1257 ADM IN [facility] [address] [place] [address]
--- NOTE | 2019-05-02 11:25 | NUR ---
PATIENT IS SITTING AND SOCIALIZING WITH PEERS. NO ACUTE DISTRESS NOTED. ABLE TO MAKE NEEDS KNOWN. AMBULATES PER SELF. PT IS DISORIENTED AT TIMES. PT IS ORIENTED TO PERSON, PLACE AND TIME. EASY TO REORIENT. COMPLAINT WITH STAFF, MEDS, VITALS AND ASSESSMENTS. PT IS VERY FRIENDLY WITH STAFF. INCONTIENT AT TIMES. WILL CONT PLAN OF CARE.
--- NOTE | 2019-05-02 16:21 | NUR ---
NURSE OFFERED PATIENT A SHOWER 2X. PT REFUSED SHOWER STATING "IT'S TO COLD FOR A SHOWER" ILL TAKE ONE TOMORROW I PROMISE.
--- NOTE | 2019-05-02 20:07 | NUR ---
RECEIVED IN DAYROOM. SITTING IN A CHAIR WITH PEERS AT HIS SIDE. SOCIALIZING AT TIMES. CALM AND COOPERATIVE WITH CARE AND ASSESSMENT. NO SIGNS OF HALLUCINATIONS. RESTING IN BED WITH EYES CLOSED AT THIS TIME. CONTINUE PLAN OF CARE.
[2019-05-02 21:33] VITALS: BP 140/85
[2019-05-03 08:00] VITALS: BP 106/69
--- NOTE | 2019-05-03 13:39 | NUR ---
PT IS AWAKE AND ALERT TO PERSON ONLY. CALM AND COOPERATIVE WITH ASSESSMENT. AMBULATES INDEPENENTLY. PT IS IN PLEASANT MOOD THIS MORNING, BUT CAN GET IRRITABLE AND CONFUSED AT TIMES DURING THE DAY. MED COMPLIANT. REDIRECT AND REORIENT NEEDED. FALL PRECAUTIONS IN PLACE. WILL CPOC.
--- NOTE | 2019-05-03 15:02 | PN ---
PATIENT:JULI KEATING MEDICAL RECORD: [id number] LOCATION:TARUN Frazier ADMISSION DATE: 04/13/19 PROGRESS NOTE DATE OF SERVICE: 05/02/2019 SUBJECTIVE: The patient's case was discussed with staff. He has no new complaint. OBJECTIVE: The patient is in good behavioral control and is quite pleasant. He once again has no insight about his situation or need for assistance and is significantly impaired in all spheres in a manner consistent with a dementing illness. ASSESSMENT: Dementia. PLAN: Current medicines have been reviewed and will be maintained. Long-term prognosis is guarded. TRANSINT:[id number] Voice Confirmation ID: [id number] DOCUMENT ID: [id number] LANIE NAIR MD at 1502 CC: [id number] DICTATION DATE: 05/02/19 1139 SKATE MAKER: 05/02/19 1547 ADM IN [place] [id number] [place] [address]
[2019-05-03 20:14] VITALS: BP 121/67
--- NOTE | 2019-05-03 22:06 | NUR ---
RECEIVED IN DAYROOM. SOCIALIZING WITH PEERS. CALM AND COOPERATIVE WITH CARE AND ASSESSMENT. NO EXIT SEEKING BEHAVIORS. NO SIGNS OF HALLUCINATIONS. REDIRECT AND REORIENT NEEDED. RESTING IN BED WITH EYES CLOSED AT THIS TIME. CONTINUE PLAN OF CARE.
[2019-05-04 07:00] VITALS: BP 122/76
--- NOTE | 2019-05-04 10:52 | NUR ---
PT SITTING IN DAYROOM WATCHING TV WITH PEERS. ALERT TO PERSON ONLY. CALM AND COOPERATIVE WITH ASSESSMENT. MED COMPLIANT. REDIRECT AND REORIENT NEEDED. FALL PRECAUTIONS IN PLACE. WILL CPOC.
--- NOTE | 2019-05-04 14:29 | NUR ---
Nutrition Follow-up: Diet: Regular, mechanical soft PO intake: 90-100% x last 7 meals Labs, meds, and skin assessment reviewed. Last BM 05/03/19. Wt: 150# (05/02/19); admit wt: 120# (04/13/19)-- question accuracy of recorded wts vs fluid status? Continue current nutrition regimen. RD Following
--- NOTE | 2019-05-04 14:49 | PN ---
PATIENT:JULI KEATING MEDICAL RECORD: [id number] LOCATION:TARUN Frazier ADMISSION DATE: 04/13/19 PROGRESS NOTE DATE OF SERVICE: 05/03/2019 SUBJECTIVE: The patient's case was discussed with staff. He has no new complaint. OBJECTIVE: The patient is in good behavioral control with limited insight about his condition. He tolerates his medicines well. ASSESSMENT: Dementia. PLAN: The patient can be transitioned to the half-way as soon as arrangements are made for his placement there. TRANSINT:[id number] Voice Confirmation ID: [id number] DOCUMENT ID: [id number] LANIE NAIR MD at 1449 CC: [id number] DICTATION DATE: 05/03/19 1610 SHOP LEAD: 05/04/19 0003 ADM IN [place] [address] [place] [address]
--- NOTE | 2019-05-04 16:27 | NUR ---
YOLANDA SPOKE WITH SON, LISBETH, AND HE STATED HE WANTED A REFERRAL SENT TO [facility] IN [place]. YOLANDA SENT REFERRAL AND LEFT NOTE ON FAX SHEET TO CONTACT UNIT IF PT IS ACCEPTED.
--- NOTE | 2019-05-04 20:44 | NUR ---
RECEIVED IN DAYROOM. SITTING IN A CHAIR WITH PEERS AT HIS SIDE. SOCIALIZING AT TIMES. CALM AND COOPERATIVE WITH CARE AND ASSESMENT. NO SIGNS OF HALLUCINATIONS. REDIRECT AND ERORIENT NEEDED. RESTING IN BED WITH EYES OPEN AT THIS TIME. CONTINUE PLAN OF CARE
[2019-05-04 20:59] VITALS: BP 122/85
[2019-05-05 08:00] VITALS: BP 109/74
--- NOTE | 2019-05-05 12:07 | PN ---
PATIENT:JULI KEATING MEDICAL RECORD: [id number] LOCATION:TARUN Frazier ADMISSION DATE: 04/13/19 PROGRESS NOTE DATE OF SERVICE: 05/04/2019 SUBJECTIVE: The patient's case was discussed with staff. He has no new complaint. OBJECTIVE: The patient is in good behavioral control with limited insight about his condition. He does tolerate his medicines well. ASSESSMENT: Dementia. PLAN: Current medicines have been reviewed and will be maintained. Long-term prognosis is guarded. TRANSINT:[id number] Voice Confirmation ID: [id number] DOCUMENT ID: [id number] LANIE NAIR MD at 1207 CC: [id number] DICTATION DATE: 05/04/19 1509 ENTRY LEVEL WEB DEVELOPER: 05/05/19 0058 ADM IN [place] [id number] [place] [id number]
--- NOTE | 2019-05-05 12:49 | NUR ---
SPOKE WITH LISBETH IN REGARDS TO DISCHARGE PLANS FOR PT. PT WILL BE GOING TO [facility] ON FRIDAY. LISBETH AND FACILITY TO ARRANGE PICKUP TIME AND WILL CALL BACK. UPDATED CLINICAL SENT TO FACILTY.
[2019-05-05] MEDS ORDERED: VITAMIN B-121000 MCG PO (12:55)
[2019-05-05] MEDS ORDERED: DONEPEZIL HCL10 MG PO (12:55)
[2019-05-05] MEDS ORDERED: FLORAJEN3 CAPS460 MG PO (12:56)
[2019-05-05] MEDS ORDERED: VITAMIN B-1100 M1 PO (12:56)
[2019-05-05] MEDS ORDERED: FOLIC ACID1 MG PO (12:56)
--- NOTE | 2019-05-05 18:31 | NUR ---
PATIENT CALM, CONFUSED, PLEASANT MOOD, COOPERATIVE. MEDS ADMIN PER ORDERS WITH COMPLETE MED COMPLIANCE NOTED. CONT POC DIRECTED.
--- NOTE | 2019-05-05 22:27 | NUR ---
RECEIVED IN PATIENT ROOM. RESTING IN BED WITH EYES OPEN. CALM AND COOPERATIVE WITH CARE AND ASSESSMENT. NO SIGNS OF HALLUCINATIONS. NO EXIT SEEKING BEHAVIORS. REDIRECT AND REORIENT NEEDED. RESTING IN BED WITH EYES CLOSED AT THIS TIME. CONTINUE PLAN OF CARE.
[2019-05-05 22:48] VITALS: BP 110/49
[2019-05-06 08:05] VITALS: BP 106/66
--- NOTE | 2019-05-06 08:30 | NUR ---
B) The patient is awake, he is confused, but he is not hallucinating at this time. He is pleasant and calm. I) Provide prescribed meds. R) The patient is compliant with meds. P) Continue with d/c planning.
--- NOTE | 2019-05-06 10:49 | NUR ---
PATIENT HAD A SHOWER THIS SHIFT.
--- NOTE | 2019-05-06 11:13 | NUR ---
NUTRITION F/U PT WT STABLE, TOLERATING REG MECH SOFT DIET WITH 75 TO 100% INTAKE RECENT MEALS. +BM RECORDED 05/04/19. WILL CONTINUE TO MONITOR WT AND PO INTAKE. RD FOLLOWING
--- NOTE | 2019-05-06 13:01 | NUR ---
PATIENT D/C WITH ELISEO FROM [facility] IN FACILITY [place]. PT STABLE AT TIME OF DISCHARGE. PT BELONGINGS SENT WITH PT AND BELONGINGS SHEET SIGNED. PT WAS TOLD WHERE HE WAS GOING AND HOW LONG IT WOULD TAKE. PT VERBALIZIED UNDERSTANDING. HE ASKED IF HIS SON WOULD BE MEETING HIM. NURSE EXPLAINED WE WERE NOT SURE. WE WOULD CALL HIM AND NOTIFY HIM. PT AMBULATED TO [place] AND GOT IN. NO DISTRESS NOTED.
--- NOTE | 2019-05-06 14:38 | PN ---
PATIENT:JULI KEATING MEDICAL RECORD: [id number] LOCATION:TARUN Frazier ADMISSION DATE: 04/13/19 PROGRESS NOTE DATE OF SERVICE: 05/05/2019 SUBJECTIVE: The patient's case was discussed with staff. He has no new complaint. OBJECTIVE: The patient is in good behavioral control with limited insight about his condition. He is tolerating his medicines well. ASSESSMENT: No change in diagnoses. PLAN: The patient will be transitioned out of the hospital tomorrow. [place] [facility] [place]. His long-term prognosis is guarded. Followup will be with his primary care [place] [facility] [place] physician. TRANSINT:[id number] Voice Confirmation ID: [id number] DOCUMENT ID: [id number] LANIE NAIR MD at 1438 CC: [id number] DICTATION DATE: 05/05/19 1254 ELECTRIC POWER MACHINE OPERATOR: 05/05/19 1318 DIS IN 05/06/19 [id number] [place] [address]
--- NOTE | 2019-05-07 15:03 | PN ---
PATIENT:JULI KEATING MEDICAL RECORD: [id number] LOCATION:TARUN Frazier ADMISSION DATE: 04/13/19 PROGRESS NOTE DATE OF SERVICE: 05/06/2019 SUBJECTIVE: The patient's case was discussed with staff. He has no new complaint. OBJECTIVE: The patient is in good behavioral control with limited insight about his condition. He has no evidence of aggression. ASSESSMENT: Dementia. PLAN: The patient will be transitioned out of the hospital today. His long-term prognosis is guarded. TRANSINT:[id number] Voice Confirmation ID: [id number] DOCUMENT ID: [id number] LANIE NAIR MD at 1503 CC: [id number] DICTATION DATE: 05/06/19 1449 IMPROVEMENT ENGINEER: 05/06/19 2301 DIS IN 05/06/19 [facility] [address] [place] [address]
--- NOTE | 2019-05-08 12:31 | DS ---
PATIENT:JULI KEATING :50 MEDICAL RECORD: [id number] DISCHARGE SUMMARY ADMISSION DATE: 04/13/19 DISCHARGE DATE: 05/06/19 IDENTIFYING DATA: The patient is 69 years old and he was admitted to the hospital on a voluntary basis because of confusion. The patient initially presented to the Emergency Room and was referred to the hospital by the Department of Human Services for placement. He was impaired, living alone and not caring for himself. He was quite disheveled and clearly cognitively impaired. He was rambling and incoherent. He does have a history of alcohol use, it is unclear when or how long ago he quit drinking. HOSPITAL COURSE: The patient was admitted to the hospital and fully evaluated from both a medical, psychological, and social standpoint. He was treated with both memory enhancing and mood stabilizing medications and showed significant improvement. He unfortunately was still cognitively impaired and that is probably going to be permanent. He did not show evidence of aggression or a mood disorder or thinking disorder. He did not show any evidence of drug or alcohol withdrawal. He was interacting and cooperative with staff and with the assistance of Adult Protective Services, he was placed in a detention. He does not have any close relatives who can or willing to care for him. Unfortunately, the detention was the least restrictive environment. DISCHARGE DIAGNOSES: AXIS I: Alcohol-related dementia. AXIS II: None. AXIS III: None. AXIS IV: Moderate. AXIS V: Global assessment of functioning is 35. PLAN: At the time of discharge, the patient was in good behavioral control and again had no evidence of acute or direct dangerousness in a direct manner. He clearly was in need of 99-tkms-g-day supervision. His long-term prognosis is fairly guarded. I think the rate of additional decline in his cognitive abilities will slow with the absence of the alcohol. Followup is to be with his primary care detention physician. TRANSINT:[id number] Voice Confirmation ID: [id number] DOCUMENT ID: [id number] LANIE NAIR MD at 1231 CC: [id number] DICTATION DATE: 05/07/19 1534 WATER TENDER: 05/08/19 0802 DIS IN 05/06/19 [place] [place] [address]
--- NOTE | 2019-06-16 12:26 | PN ---
PATIENT:JULI ROCHA MEDICAL RECORD: [id number] LOCATION:TARUN Thomas112 ADMISSION DATE: 04/13/19 PROGRESS NOTE DATE OF SERVICE: 04/27/2019 SUBJECTIVE: Mr. Rocha is a 69-year-old male, who was admitted secondary to wandering from home, confusion, unable to take care of himself. The patient is pleasant, but confused. He is able to do his own ADLs if it is initiated and structured for him. Nursing states that even after days of being here, the patient still wanders around the day room looking for the bathroom. We are awaiting placement decisions about this gentleman working with APS. He slept 8.75 hours. Eating 100%, 90%, and 75% with last bowel movement on the . OBJECTIVE: LATEST VITAL SIGNS: 98.2, 77, 18, 141/82, and 96%. ASSESSMENT: Unchanged. PLAN: Awaiting placement. The patient is pleasant, but confused and is unable to care for himself independently. Case discussed with nursing, chart reviewed and patient interviewed. TRANSINT:[id number] Voice Confirmation ID: [id number] DOCUMENT ID: [id number] SHARON BARRY MD at 1226 CC: [id number] DICTATION DATE: 04/27/19 1207 FINGERNAIL SCULPTOR: 04/27/19 1326 DIS IN 05/06/19 [place] [address] [place] [address]
== END 2019-05-06 12:30 | DRG 897 ==
LOC: D.ER 12:54 → D.PSYCH 18:43
PROVIDERS: Family Medicine; ADMIT Psychiatry & Neurology Psychiatry; ATTEND Psychiatry & Neurology Psychiatry
DX: F10.27 Alcohol dependence with alcohol-induced persisting dementia (principal); I10 Essential (primary) hypertension; J44.9 Chronic obstructive pulmonary disease, unspecified; Z72.0 Tobacco use; Z74.09 Other reduced mobility; K21.9 Gastro-esophageal reflux disease without esophagitis; Z91.81 History of falling; F41.9 Anxiety disorder, unspecified; E53.8 Deficiency of other specified B group vitamins; M54.5 Low back pain; K04.7 Periapical abscess without sinus